=== PATIENT | male | born 1995 | race Caucasian/White ===

== ENCOUNTER 2017-12-23 06:49 | Emergency (ER) | payer OTHER ==
[~2017-12-23] VITALS: Ht 195.6 cm; Wt 140.6 kg
[2017-12-23 07:21] LABS: URINE BILIRUBIN NEGATIVE (Negative); URINE BLOOD NEGATIVE (Negative); URINE CLARITY CLEAR; URINE COLOR YELLOW; URINE GLUCOSE-RANDOM NEGATIVE (Negative); URINE KETONES NEGATIVE (Negative); URINE LEUKOCYTES-REFLEX NEGATIVE (Negative); URINE NITRITE-REFLEX NEGATIVE (Negative); URINE PROTEIN NEGATIVE (Negative); URINE SPECIFIC GRAVITY >= 1.030 (1.005-1.030); URINE UROBILINOGEN 0.2 E.U./dl (0.2-1.0)
[2017-12-23 07:33] LABS: ABSOLUTE EOSINOPHILS 0.1 thou/uL (0.0-0.7); ABSOLUTE LYMPHOCYTES 1.8 thou/uL (0.8-5.3); ABSOLUTE MONOCYTES 0.5 thou/uL (0.0-1.2); ABSOLUTE NEUTROPHILS 3.3 thou/uL (1.6-8.1); BASOPHILS 0.7 %; EOSINOPHILS 1.5 %; HEMATOCRIT 44.2 % (42.0-52.0); HEMOGLOBIN 14.5 gm/dL (14.0-18.0); MCH 26.2 pg (26.0-34.0); MCHC 32.9 g/dL (28.0-37.0); MCV 79.6 fL (80.0-100.0); MPV 8.6 fl. (7.2-11.1); NUCLEATED RBCS 0 /100WBC; PLATELET COUNT* 202 thou/uL (150-400); POLYS 57.8 %; RBC 5.55 mil/uL (4.50-6.00); RDW-CV 14.6 % (10.5-14.5); WBC 5.7 thou/uL (4.0-11.0)
[2017-12-23 07:42] LABS: CALCIUM 8.3 mg/dL (8.5-10.1); CREATININE 0.8 mg/dL (0.6-1.3); POTASSIUM 3.5 mmol/L (3.5-5.1)
[2017-12-23 07:46] LABS: ALBUMIN 3.8 g/dL (3.4-5.0); TOTAL BILIRUBIN 0.9 mg/dL (<0.1-1.0); TOTAL PROTEIN 7.9 g/dL (6.4-8.2)
[2017-12-23 08:22] VITALS: BP 135/80
== END 2017-12-23 08:23 | disposition home or self-care (01) ==
LOC: M.ERS 06:49
PROVIDERS: Emergency Medicine
DX: E86.0 Dehydration (principal); M54.5 Low back pain